=== PATIENT | female | born 2000 | race Caucasian/White ===

== ENCOUNTER → 2021-01-23 | Outpatient (REF) | payer OTHER ==
[2021-01-23 13:56] LABS: HEMATOCRIT 33.1 % (36.0-47.0); HEMOGLOBIN 10.7 g/dl (12.0-15.5); MEAN CORPUSCULAR HEMOGLOBIN 30.2 pg (27.0-33.0); MEAN CORPUSCULAR HGB CONC 32.3 g/dl (32.0-36.5); MEAN CORPUSCULAR VOLUME 93.5 fl (80.0-96.0); PLATELET COUNT, AUTOMATED 284 10^3/uL (150-450); RED BLOOD COUNT 3.54 10^6/uL (4.00-5.40); WHITE BLOOD COUNT 7.8 10^3/uL (4.0-10.0)
[2021-01-23 14:23] LABS: GLUCOSE CHALLENGE TEST 1 HOUR 131 MG/DL (LESS THAN 140)
[2021-01-23 15:09] LABS: CHLAMYDIA DNA AMPLIFICATION NEGATIVE (NEGATIVE); GC DNA AMPLIFICATION NEGATIVE (NEGATIVE)
[2021-01-23 15:18] LABS: HEPATITIS C VIRUS ABY INDEX < 0.0 INDEX (<0.8); HIV 1&2 SCREEN CENTAUR NEGATIVE (NEGATIVE)
== END ==
LOC: M PLALAB 10:08
PROVIDERS: ATTEND Obstetrics & Gynecology
DX: Z34.90 Encounter for supervision of normal pregnancy, unspecified, unspecified trimester (principal); Z3A.37 37 weeks gestation of pregnancy; Z36.89 Encounter for other specified antenatal screening

== ENCOUNTER → 2021-02-10 | Outpatient (CLI) | payer OTHER ==
[~2021-02-10] MED LIST: ACET-907 PO; FLUO40CA PO; PRENTAB9 PO
--- NOTE | 2021-02-10 10:27 | REP ---
INDICATION: GROWTH/37 WKS. COMPARISON: None. TECHNIQUE: Real-time sonographic evaluation of the gravid uterus performed. FINDINGS: Estimated gestational age is39 weeks 6 days, EDC 02/11/2021. Today's measurements indicate suboptimal growth. Presentation: Cephalic Placenta anterior, grade 3, without evidence of placenta previa. heart rate is recorded at 142 beats per minute. Amniotic fluid is subjectively normal. DELMA 11.9, normal range 7.1-21.6. Cervix could not be visualized due to shadowing from the cranium. Biometry chart: BPD: 83 mm, 33 weeks 3 days, less than 5th percentile. HC: 311 mm, 34 weeks 6 days, less than 5th percentile AC: 330 mm, 36 weeks 6 days, 5th percentile Femur length: 70 mm, 36 weeks 1 days, less than 5th percentile HC to AC ratio: 0.94, normal range 0.89-1.08. Estimated weight: 2839g, less than 3rd percentile. IMPRESSION: Viable single intrauterine gestation as above. Suboptimal growth based on provided estimated gestational age. <Electronically signed by Paolo Oliveira > 02/10/21 102
== END ==
LOC: M PLAIMG 09:22
PROVIDERS: ATTEND Obstetrics & Gynecology
DX: Z36.89 Encounter for other specified antenatal screening (principal); Z3A.36 36 weeks gestation of pregnancy

== ENCOUNTER 2021-02-11 09:12 | Inpatient (IN) | payer OTHER ==
[~2021-02-11] VITALS: Ht 162.6 cm; Wt 97.7 kg
[2021-02-11] VITALS (20 sets, daily range): BP systolic 119–150; BP diastolic 72–92
[2021-02-11] MEDS ORDERED: PENICILLIN G POTASSIUM IV 5 MU in D5W MINI-BAG PLUS 100 ML IV STA (09:38)
[2021-02-11] MEDS ORDERED: LIDOCAINE 1% MDV 20ML VIAL INFIL PRN (09:40)
[2021-02-11] MEDS ORDERED: METHYLERGONOVINE MALEATE 0.2 MG/ML VIAL (J2210) IM PRN (09:40)
[2021-02-11] MEDS ORDERED: OXYTOCIN DRIP 30 UNITS in IV 1 EA IV PRN (09:40)
[2021-02-11] MEDS ORDERED: ACET-907 PO ×2 (09:49)
[2021-02-11] MEDS ORDERED: PRENTAB9 PO (09:49)
[2021-02-11] MEDS ORDERED: FLUO40CA PO (09:51)
[2021-02-11] MEDS ORDERED: ceFAZolin SOD 2 GM in IV 1 EA IV STA (10:38)
[2021-02-11 10:52] LABS: HEMATOCRIT 33.1 % (36.0-47.0); MEAN CORPUSCULAR HEMOGLOBIN 30.6 pg (27.0-33.0); MEAN CORPUSCULAR HGB CONC 33.2 g/dl (32.0-36.5); MEAN CORPUSCULAR VOLUME 91.9 fl (80.0-96.0); PLATELET COUNT, AUTOMATED 298 10^3/uL (150-450); WHITE BLOOD COUNT 9.3 10^3/uL (4.0-10.0)
[2021-02-11] MEDS: miSOPROStol 50MCG 1/2 TABLET PO SCH ×2 (11:09→15:10)
--- NOTE | 2021-02-11 12:06 | HPE ---
HISTORY AND PHYSICAL DATE OF SERVICE: 02/11/2021 HISTORY OF PRESENT ILLNESS: Magy is a 20-year-old 1, para 0. She is 40 weeks gestation today with an EDC of 02/11/2021 based on last menstrual period and confirmed by first trimester ultrasound. She presents to labor and delivery today for induction of labor per consult with Dr. Steven Hirsch due to intrauterine growth restriction diagnosed yesterday by ultrasound. She denies regular contractions, vaginal bleeding and leakage of fluid. The fetus has been active. Her care was initiated out of state in [place] with a transfer of care at 37 weeks to [facility]. She did have a lapse in her care where she received no care between September and December of this year. course complicated by diagnosis of IUGR, depression/anxiety, OCD. OBSTETRIC HISTORY: Primigravida. OBSTETRIC LABORATORY DATA: A positive. Antibody screen negative. Rubella immune. Gonorrhea and chlamydia negative. Hepatitis C antibody non-reactive. Hepatitis B surface antigen negative. HIV negative. Syphilis negative. Urine culture no growth. Gestational diabetic screening was never performed due to the late transfer of care and her GBS is positive. PAST MEDICAL HISTORY: 1. Depression/anxiety. 2. Obsessive compulsive disorder. PAST SURGICAL HISTORY: None. FAMILY HISTORY: Noncontributory. SOCIAL HISTORY: The patient does have the father of the baby at bedside. He does appear to be supportive. She is a nonsmoker. She denies alcohol and drug use. She denies history of abuse - physical, sexual and emotional. No history of any sexually transmitted infections. ALLERGIES: AMOXICILLIN which causes hives. She denies anaphylaxis. CURRENT MEDICATIONS: vitamin. PHYSICAL EXAMINATION: Temp 99.2, pulse 117, respiration 18, BP 124/75. She is alert and oriented times 3. She does appear anxious upon arrival. heart rate is 135 with moderate variability, positive accelerations, negative decelerations. Contractions are occasional. Abdomen: Gravid. Estimated weight 2800 grams. Cephalic presentation. Ultrasound yesterday demonstrates cephalic presentation with an estimated weight of 2839 grams, less than the third percentile based on 02/11/2021 EDC. This is the first ultrasound at this facility. Her DELMA is 11.9 cm. Sterile vaginal exam: 2 cm dilated, 75% effaced, -3 station, posterior, moderate texture, no show with the exam. ASSESSMENT: Intrauterine at 40 weeks gestation, heart rate is category 1, IUGR versus possible small for gestational age infant. PLAN: Admit patient to labor and delivery. Routine laboratories. Out of bed ad gabi. Regular diet at this time. I plan to start misoprostol 50 mcg by mouth for cervical ripening then may consider Yung bulb insertion. We will likely start I.V. Pitocin. The patient is considering an epidural for her labor coping when she is uncomfortable. I did review risks, benefits and alternatives. All of her and her partner's questions have been answered. She has been verbally consented for emergency surgery and blood products if they are necessary. I do anticipate cervical ripening.
[2021-02-11] MEDS ORDERED: PENICILLIN G POTASSIUM IV 2.5 MU in IV 1 EA IV SCH (13:40)
[2021-02-11 14:28] LABS: AMPHETAMINES URINE REFLEX NEGATIVE (NEGATIVE); BARBITURATES URINE REFLEX NEGATIVE (NEGATIVE); BENZODIAZEPINES URINE REFLEX NEGATIVE (NEGATIVE); CANNABINOIDS URINE REFLEX NEGATIVE (NEGATIVE); COCAINE METABOLITE URINE REFLE NEGATIVE (NEGATIVE); METHADONE URINE REFLEX NEGATIVE (NEGATIVE); OPIATES URINE REFLEX NEGATIVE (NEGATIVE); PHENCYCLIDINE URINE REFLEX NEGATIVE (NEGATIVE)
[2021-02-11] MEDS ORDERED: ceFAZolin SOD 1 GM in D5W MINI-BAG PLUS 50 ML IV SCH (18:40)
[2021-02-11] MEDS ORDERED: OXYTOCIN DRIP 30 UNITS in IV 1 EA IV SCH (19:15)
[2021-02-11] MEDS: LR 1,000 ML IV SCH (19:48)
[2021-02-11] MEDS ORDERED: PROMETHAZINE INJ 25 MG/ML VIAL (J2550) IV ONE (21:15)
[2021-02-11] MEDS ORDERED: BUTORPHANOL 2 MG/ML INJ (J0595) IV ONE (21:15)
[2021-02-11] MEDS ORDERED: ceFAZolin SOD 2 GM in IV 1 EA IV ONE (22:00)
[2021-02-12] VITALS (51 sets, daily range): BP systolic 109–153; BP diastolic 55–92
[2021-02-12] MEDS ORDERED: FENTANYL 2MCG/ML ROPIVACAINE 0.2% IN 0.9% NACL 100ML IVBAG As Ordered ONE (00:34)
[2021-02-12] MEDS ORDERED: REFRIGERATOR IV KEYS XX PRN (01:20)
[2021-02-12] MEDS ORDERED: EPIDURAL/PCA KEYS XX PRN (01:20)
[2021-02-12] MEDS ORDERED: FENTANYL/ROPIVACAINE/NACL BAG 100 ML EPIDURAL SCH (01:20)
[2021-02-12] MEDS ORDERED: LACTATED RINGER'S 1000 ML IV PRN (01:20)
[2021-02-12] MEDS ORDERED: ePHEDrine SULFATE 25 MG/5 ML(5MG/ML) SYRINGE IV PRN (01:20)
[2021-02-12] MEDS ORDERED: NALOXONE INJ 0.4MG/1ML VIAL (J2310 PER 1MG) IV PRN (01:20)
[2021-02-12] MEDS ORDERED: EPIDURAL COMMENT XX SCH (01:20)
[2021-02-12] MEDS ORDERED: ONDANSETRON 4MG/2ML VIAL IV PRN (01:20)
[2021-02-12] MEDS ORDERED: diphenhydrAMINE 50MG/ML VIAL (J1200) IV PRN (01:20)
[2021-02-12] MEDS: LR 1,000 ML IV SCH ×3 (03:15→07:56)
[2021-02-12] MEDS ORDERED: ceFAZolin SOD 1 GM in D5W MINI-BAG PLUS 50 ML IV SCH (06:00)
[2021-02-12] MEDS: PRENATAL VITAMINS CHEWABLE TABLET PO SCH (09:00)
[2021-02-12] MEDS ORDERED: RHOGAM 300 MCG (1500 IU) INJ (J2790) IM SCH (10:05)
[2021-02-12] MEDS ORDERED: MEASLES,MUMPS,RUBELLA VACCINE INJ (MMR-II) (90707) SC SCH (10:05)
[2021-02-12] MEDS ORDERED: OXYTOCIN DRIP 30 UNITS in IV 1 EA IV SCH (10:05)
[2021-02-12] MEDS ORDERED: DOCUSATE SODIUM 100MG CAPSULE PO PRN (10:05)
[2021-02-12] MEDS ORDERED: ACETAMINOPHEN TAB 650MG DOSE (2X325MG) PO PRN (10:05)
[2021-02-12] MEDS ORDERED: ACETAMINOPHEN 500 MG TAB PO PRN (10:05)
--- NOTE | 2021-02-12 10:23 | DNPDOC ---
[facility] Delivery Note Delivery Note DATE OF DELIVERY: 02/12/2021 PREDELIVERY DIAGNOSIS: 40w1d, IOL for IUGR <3% based on u/s done on 02/10 which predicted 2839g POST DELIVERY DIAGNOSIS: Delivered. PROCEDURE: Spontaneous vaginal delivery LDR RN: Dr. Ibeth Tovar MD ANESTHESIA: epidural ESTIMATED BLOOD LOSS: 300 mL. FINDINGS: 6 pound 9 ounce (2970g) female , Score 7/9, nuchal cord times 1 DELIVERY SUMMARY: Magy is a 20yo [id number] s/p uncomplicated at 0921 on 02/12/21 after undergoing IOL for IUGR <3%ile, delivering at 40w1d. She had an uncomplicated induction process and in less than 24hr, progressed to C/C/+1 at which point she began pushing. Meconium stained fluid was noted earlier in her labor course and she was receiving IV anceph for GBS positive status. With good maternal effort, infant's head delivered OA, restituted JOSH. Tight nuchal cord noted and reduced. Right anterior shoulder easily delivered followed by posterior shoulder and corpus. was vigorous, placed on maternal abdomen and with stimulation spontaneous cry noted, apgars 7/9. After approximately 2 minutes, cord was clamped x2 and cut by FOB under my direction. Some brisk bleeding was noted, and when I inspected perineum/vagina, a periclitoral laceration was noted which I immediately sutured using 3-0 vicryl in routine fashion and obtained immediate hemostasis. At that point I performed fundal massage and with traction on the cord, placenta delivered spontaneously and intact with 3 vessel centrally inserted cord (cord was subjectively thin). Bimanual massage performed and IV pitocin given per protocol, fundus then firm at u-2cm with hemostasis gained. At that point, I returned to the perineum and sutured the remaining small ledy just inside of the introitus as well as a small right labial laceration, using 3-0 vicryl, repairing them in routine fashion with excellent reapproximation noted. Complete hemostasis assured. All counts correct x2. Mom and baby were doing well when I left the room. MD Guy Mcnair Katrina D MD Feb 12, 2021 10:10
[2021-02-12] MEDS: IBUPROFEN 800 MG TAB PO PRN (12:38)
[2021-02-12] MEDS: DIBUCAINE 1% OINTMENT 30GM TOP PRN (19:51)
[2021-02-12] MEDS: IBUPROFEN 600MG TAB PO PRN (21:37)
[2021-02-13 05:52] VITALS: BP 134/66
[2021-02-13] MEDS: PRENATAL VITAMINS CHEWABLE TABLET PO SCH (08:16)
--- NOTE | 2021-02-13 08:21 | IPNPDOC ---
Text Note Date of Service The patient was seen on 02/13/21. NOTE PP#1 Feels well. Adequate pain management. Breast and formula feeding. Voiding. VSS, afebrile,normotensive Breasts soft, nipples intact Fundus firm, NT, down 1 FB Lochia rubra light without odor Perineum well approximated PP #1 Reviewed initiation of . Enc pt to put baby to breast first then supplement if indicated Enc consult Anticipate D/C in am VS,Fishbone, I+O VS, Fishbone, I+O Vital Signs Date Time Temp Pulse Resp B/P (MAP) Pulse Ox O2 Delivery O2 Flow Rate FiO2 02/13/21 05:52 98.4 95 20 134/66 (88) 99 Room Air I&O- Last 24 Hours up to 6 AM 02/13/21 06:00 Intake Total 1931.7 ml Output Total 2500 ml Balance -568.3 ml Bettie Ulloa CNM Feb 13, 2021 08:20
[2021-02-13] MEDS: IBUPROFEN 600MG TAB PO PRN (12:02)
[2021-02-13 12:10] VITALS: BP 126/76
[2021-02-13 18:00] VITALS: BP 133/64
[2021-02-14] MEDS: IBUPROFEN 600MG TAB PO PRN (02:43)
[2021-02-14 06:00] VITALS: BP 124/64
[2021-02-14] MEDS: PRENATAL VITAMINS CHEWABLE TABLET PO SCH (08:38)
[2021-02-14] MEDS: IBUPROFEN 800 MG TAB PO PRN (12:57)
[2021-02-14] MEDS: DIBUCAINE 1% OINTMENT 30GM TOP PRN (13:38)
[2021-02-14] MEDS ORDERED: BOOSTRIX/ADACEL VACCINE (DIPHTH/PERTUSS/ACELL/TETANUS) 0.5ML SYR IM ONE (15:00)
[2021-02-14] MEDS ORDERED: INFLUENZA QUADRIVALENT PF VACCINE 0.5ML SYRINGE IM ONE (15:00)
== END 2021-02-14 15:25 | disposition home or self-care (01) | DRG 807 ==
LOC: M LDI 09:12 → M OBS 02-12 13:02
PROVIDERS: ADMIT Advanced Practice Midwife; ATTEND Obstetrics & Gynecology
PROC: 3E0P7GC Introduction of Other Therapeutic Substance into Female Reproductive, Via Natural or Artificial Opening (ICD-10-PCS; 2021-02-11)
PROC: 10E0XZZ Delivery of Products of Conception, External Approach (ICD-10-PCS; principal; 2021-02-12)
PROC: 0HQ9XZZ Repair Perineum Skin, External Approach (ICD-10-PCS; 2021-02-12)
DX: O36.5930 Maternal care for other known or suspected poor fetal growth, third trimester, not applicable or unspecified (principal); Z37.0 Single live birth; Z3A.40 40 weeks gestation of pregnancy; O99.344 Other mental disorders complicating childbirth; F32.9 Major depressive disorder, single episode, unspecified; F41.9 Anxiety disorder, unspecified; F42.9 Obsessive-compulsive disorder, unspecified; O99.824 Streptococcus B carrier state complicating childbirth; O69.1XX0 Labor and delivery complicated by cord around neck, with compression, not applicable or unspecified; O70.0 First degree perineal laceration during delivery

== ENCOUNTER 2021-05-02 15:45 | Emergency (ER) | payer OTHER ==
[~2021-05-02] VITALS: Ht 162.6 cm; Wt 94.4 kg
[2021-05-02] MEDS ORDERED: HYDR28CR33 TOP (18:48)
--- NOTE | 2021-05-02 18:54 | REP ---
INDICATION: redness, swelling antecubital COMPARISON: None. TECHNIQUE: Oliveira scale and color Doppler evaluation using linear high frequency transducer. FINDINGS: Ultrasound examination of the left upper extremity deep venous structures including jugular, subclavian, axillary, brachial, basilic, and cephalic veins appear patent and without evidence for deep venous thrombosis. Contralateral right subclavian vein is patent. Further evaluation of the left antecubital area at the site of maximal erythema demonstrates underlying edema without fluid collection. IMPRESSION: No evidence for deep venous thrombosis. <Electronically signed by Tin Huang > 05/02/21 2429
[2021-05-02 19:08] VITALS: BP 122/75
== END 2021-05-02 19:10 | disposition home or self-care (01) ==
LOC: M ED 15:45
DX: L24.9 Irritant contact dermatitis, unspecified cause (principal); Z79.899 Other long term (current) drug therapy; Z88.0 Allergy status to penicillin

== ENCOUNTER 2021-10-07 11:42 | Emergency (ER) | payer OTHER ==
[~2021-10-07] VITALS: Ht 162.6 cm; Wt 97.7 kg
[~2021-10-07 11:42] MED LIST changes: +HYDR28CR33 TOP
[2021-10-07 11:43] VITALS: BP 137/88
[2021-10-07 13:37] LABS: RSV AMPLIFICATION NEGATIVE (NEGATIVE)
== END 2021-10-07 17:36 | disposition left against medical advice (07) ==
LOC: M ED 11:42
DX: Z53.21 Procedure and treatment not carried out due to patient leaving prior to being seen by health care provider (principal)

== ENCOUNTER → 2021-12-23 | Outpatient (CLI) | payer OTHER | LOC: M WHC 07:58 | PROVIDERS: ATTEND Advanced Practice Midwife | DX: O09.32 Supervision of pregnancy with insufficient antenatal care, second trimester (principal); Z3A.22 22 weeks gestation of pregnancy ==

== ENCOUNTER 2022-01-03 14:10 | Outpatient (CLI) | payer OTHER ==
[~2022-01-03] VITALS: Ht 162.6 cm; Wt 105.4 kg
[2022-01-03 14:31] VITALS: BP 131/72
[2022-01-03] MEDS ORDERED: HOME MED LIST COMPLETE! XX SCH (14:40)
== END 2022-01-03 15:48 | disposition home or self-care (01) ==
LOC: M LDO 14:10
PROVIDERS: ATTEND Obstetrics & Gynecology
DX: O36.8120 Decreased fetal movements, second trimester, not applicable or unspecified (principal); O99.342 Other mental disorders complicating pregnancy, second trimester; F32.A Depression, unspecified; Z3A.23 23 weeks gestation of pregnancy
CPT/HCPCS: 59025; 76815; G0378; G0463

== ENCOUNTER → 2022-01-22 | Outpatient (CLI) | payer OTHER ==
[2022-01-22 13:25] LABS: HEMATOCRIT 33.1 % (36.0-47.0); HEMOGLOBIN 10.7 g/dl (12.0-15.5); MEAN CORPUSCULAR HEMOGLOBIN 29.4 pg (27.0-33.0); MEAN CORPUSCULAR HGB CONC 32.3 g/dl (32.0-36.5); MEAN CORPUSCULAR VOLUME 90.9 fl (80.0-96.0); PLATELET COUNT, AUTOMATED 322 10^3/uL (150-450); RED BLOOD COUNT 3.64 10^6/uL (4.00-5.40); WHITE BLOOD COUNT 10.1 10^3/uL (4.0-10.0)
[2022-01-22 13:54] LABS: GLUCOSE CHALLENGE TEST 1 HOUR 84 MG/DL (LESS THAN 140)
[2022-01-22 14:47] LABS: HEPATITIS C VIRUS ABY INDEX 0.2 INDEX (<0.8); HIV 1&2 SCREEN CENTAUR NEGATIVE (NEGATIVE)
[2022-01-22 14:49] LABS: GC DNA AMPLIFICATION NEGATIVE (NEGATIVE)
== END ==
LOC: M PLALAB 11:19
PROVIDERS: ATTEND Advanced Practice Midwife
DX: O09.32 Supervision of pregnancy with insufficient antenatal care, second trimester (principal); Z36.89 Encounter for other specified antenatal screening; Z3A.00 Weeks of gestation of pregnancy not specified

== ENCOUNTER → 2022-01-22 | Outpatient (REF) | payer OTHER | LOC: M PLALAB 07:59 | PROVIDERS: ATTEND Advanced Practice Midwife | DX: Z53.9 Procedure and treatment not carried out, unspecified reason (principal) ==

== ENCOUNTER → 2022-02-09 | Outpatient (CLI) | payer OTHER | LOC: M WHC 13:30 | PROVIDERS: ATTEND Advanced Practice Midwife | DX: O99.213 Obesity complicating pregnancy, third trimester (principal); Z3A.28 28 weeks gestation of pregnancy; E66.9 Obesity, unspecified ==

== ENCOUNTER 2022-03-10 17:24 | Emergency (ER) | payer OTHER ==
[~2022-03-10] VITALS: Ht 162.6 cm; Wt 106.8 kg
[2022-03-10] MEDS ORDERED: OMEG10002 PO (18:04)
[2022-03-10] MEDS ORDERED: FLUO20CA22 (18:04)
[2022-03-10] MEDS ORDERED: NS 1,000 ML IV ONE (20:20)
[2022-03-10 21:18] LABS: BASO % 0.3 % (0.0-1.0); EOS % 0.3 % (0.0-3.0); HEMATOCRIT 34.3 % (36.0-47.0); HEMOGLOBIN 11.1 g/dl (12.0-15.5); LYMPH # 2.4 10^3/uL (1.5-5.0); LYMPH % 21.7 % (24.0-44.0); MEAN CORPUSCULAR HGB CONC 32.4 g/dl (32.0-36.5); MEAN CORPUSCULAR VOLUME 89.6 fl (80.0-96.0); MONO # 0.6 10^3/uL (0.0-0.8); MONO % 5.7 % (2.0-8.0); NEUTROPHILS # 7.8 10^3/uL (1.5-8.5); NEUTROPHILS % 71.3 % (36.0-66.0); PLATELET COUNT, AUTOMATED 292 10^3/uL (150-450); RED BLOOD COUNT 3.83 10^6/uL (4.00-5.40)
[2022-03-10 21:58] LABS: BLOOD UREA NITROGEN 8 MG/DL (7-18); C REACTIVE PROTEIN QUANTITATIV 1.62 MG/DL (0.00-0.30); CALCIUM LEVEL 9.1 MG/DL (8.5-10.1); CARBON DIOXIDE LEVEL 24 MEQ/L (21-32); CHLORIDE LEVEL 108 MEQ/L (98-107); CREATININE FOR GFR 0.55 MG/DL (0.55-1.30); GLUCOSE, FASTING 72 MG/DL (70-100); POTASSIUM SERUM 3.9 MEQ/L (3.5-5.1); SODIUM LEVEL 138 MEQ/L (136-145)
[2022-03-10 22:22] LABS: ERYTHROCYTE SEDIMENTATION RATE 53 mm/hr (0-20)
[2022-03-10 23:20] LABS: FREE T4 0.98 NG/DL (0.78-1.33)
[2022-03-11 00:01] VITALS: BP 126/75
== END 2022-03-11 00:03 | disposition home or self-care (01) ==
LOC: M ED 17:24
DX: O99.413 Diseases of the circulatory system complicating pregnancy, third trimester (principal); O99.343 Other mental disorders complicating pregnancy, third trimester; Z3A.33 33 weeks gestation of pregnancy; Z88.0 Allergy status to penicillin

== ENCOUNTER → 2022-03-11 | Outpatient (CLI) | payer OTHER ==
[~2022-03-11] MED LIST changes: +FLUO20CA22; +OMEG10002 PO
== END ==
LOC: M WHC 14:41
PROVIDERS: ATTEND Advanced Practice Midwife
DX: O99.343 Other mental disorders complicating pregnancy, third trimester (principal); Z3A.33 33 weeks gestation of pregnancy

== ENCOUNTER → 2022-04-02 | Outpatient (REF) | payer OTHER | LOC: M PLALAB 16:09 | PROVIDERS: ATTEND Advanced Practice Midwife | DX: O99.343 Other mental disorders complicating pregnancy, third trimester (principal); Z36.89 Encounter for other specified antenatal screening; Z3A.00 Weeks of gestation of pregnancy not specified ==

== ENCOUNTER 2022-08-06 19:52 | Emergency (ER) | payer OTHER ==
[~2022-08-06] VITALS: Ht 162.6 cm; Wt 106.5 kg
[~2022-08-06 19:52] MED LIST changes: +ACET-683 PO; +IBUP80TA PO
[2022-08-06 21:54] LABS: HEMATOCRIT 39.9 % (36.0-47.0); MEAN CORPUSCULAR HEMOGLOBIN 27.7 pg (27.0-33.0); MEAN CORPUSCULAR HGB CONC 32.6 g/dl (32.0-36.5); MEAN CORPUSCULAR VOLUME 85.1 fl (80.0-96.0); PLATELET COUNT, AUTOMATED 442 10^3/uL (150-450); RED BLOOD COUNT 4.69 10^6/uL (4.00-5.40); WHITE BLOOD COUNT 11.3 10^3/uL (4.0-10.0)
[2022-08-06 22:29] LABS: AMPHETAMINES LEVEL URINE NEGATIVE (NEGATIVE); BARBITURATES URINE NEGATIVE (NEGATIVE); BENZODIAZEPINES URINE NEGATIVE (NEGATIVE); CANNABINOIDS URINE NEGATIVE (NEGATIVE); COCAINE METABOLITE URINE NEGATIVE (NEGATIVE); METHADONE URINE NEGATIVE (NEGATIVE); OPIATES URINE NEGATIVE (NEGATIVE); PHENCYCLIDINE URINE NEGATIVE (NEGATIVE)
[2022-08-06 22:37] LABS: ACETAMINOPHEN LEVEL < 2.0 UG/ML (10.0-30.0); ALBUMIN 4.2 GM/DL (3.2-5.2); ALT/SGPT 24 U/L (12-78); BILIRUBIN,DIRECT 0.1 MG/DL (0.0-0.2); BILIRUBIN,TOTAL 0.3 MG/DL (0.2-1.0); BLOOD UREA NITROGEN 17 MG/DL (7-18); CALCIUM LEVEL 9.5 MG/DL (8.5-10.1); CARBON DIOXIDE LEVEL 26 MEQ/L (21-32); CHLORIDE LEVEL 105 MEQ/L (98-107); CREATININE FOR GFR 1.01 MG/DL (0.55-1.30); ETHYL ALCOHOL (ETHANOL) < 0.003 % (0.000-0.010); GLUCOSE, FASTING 95 MG/DL (70-100); POTASSIUM SERUM 3.7 MEQ/L (3.5-5.1); SALICYLATE LEVEL < 1.7 MG/DL (5.0-30.0); SODIUM LEVEL 138 MEQ/L (136-145); THYROID STIMULATING HORMONE 0.727 uIU/ML (0.463-3.98); TOTAL PROTEIN 8.6 GM/DL (6.4-8.2)
[2022-08-06 22:43] LABS: HCG, SERUM QUALITATIVE NEGATIVE (NEGATIVE)
[2022-08-07 14:30] VITALS: BP 136/76
== END 2022-08-07 14:52 | disposition home or self-care (01) ==
LOC: M ED 19:52 → EDBD 19:52 → M ED 08-07 14:52
DX: F32.9 Major depressive disorder, single episode, unspecified (principal); F41.9 Anxiety disorder, unspecified; F42.9 Obsessive-compulsive disorder, unspecified; F17.200 Nicotine dependence, unspecified, uncomplicated; Z79.899 Other long term (current) drug therapy; Z88.0 Allergy status to penicillin

== ENCOUNTER → 2022-09-09 | Outpatient (CLI) | payer OTHER ==
[2022-09-09 17:21] LABS: BASO % 0.5 % (0.0-1.0); EOS # 0.1 10^3/uL (0.0-0.5); HEMOGLOBIN 12.8 g/dl (12.0-15.5); LYMPH # 3.3 10^3/uL (1.5-5.0); LYMPH % 37.4 % (24.0-44.0); MEAN CORPUSCULAR HEMOGLOBIN 27.7 pg (27.0-33.0); MEAN CORPUSCULAR HGB CONC 31.2 g/dl (32.0-36.5); MEAN CORPUSCULAR VOLUME 88.7 fl (80.0-96.0); MONO # 0.6 10^3/uL (0.0-0.8); MONO % 7.2 % (2.0-8.0); NEUTROPHILS # 4.7 10^3/uL (1.5-8.5); NEUTROPHILS % 53.7 % (36.0-66.0); PLATELET COUNT, AUTOMATED 406 10^3/uL (150-450); RED BLOOD COUNT 4.62 10^6/uL (4.00-5.40); WHITE BLOOD COUNT 8.7 10^3/uL (4.0-10.0)
[2022-09-09 19:06] LABS: ALBUMIN 4.1 GM/DL (3.2-5.2); ALT/SGPT 23 U/L (12-78); BILIRUBIN,TOTAL 0.3 MG/DL (0.2-1.0); BLOOD UREA NITROGEN 13 MG/DL (7-18); CALCIUM LEVEL 9.5 MG/DL (8.5-10.1); CARBON DIOXIDE LEVEL 26 MEQ/L (21-32); CHLORIDE LEVEL 105 MEQ/L (98-107); CREATININE FOR GFR 0.72 MG/DL (0.55-1.30); FERRITIN 19 NG/ML (8-252); FREE T4 1.15 NG/DL (0.78-1.33); GLUCOSE, FASTING 78 MG/DL (70-100); IRON (FE) 69 UG/DL (50-170); PERCENT SATURATION 18.3 % (13.2-45.0); POTASSIUM SERUM 4.3 MEQ/L (3.5-5.1); SODIUM LEVEL 139 MEQ/L (136-145); TOTAL IRON BINDING CAPACITY 377 UG/DL (250-450); TOTAL PROTEIN 7.9 GM/DL (6.4-8.2)
[2022-09-09 20:05] LABS: TOTAL 25(OH) VITAMIN D 19.7 NG/ML (30.0-100.0)
== END ==
LOC: M PLALAB 15:33
PROVIDERS: ATTEND Student in an Organized Health Care Education/Training Program
DX: R53.83 Other fatigue (principal); G47.00 Insomnia, unspecified